=== PATIENT | female | born 1940 | race Caucasian/White ===

== ENCOUNTER 2019-06-27 05:25 | Day surgery (SDC) | payer MEDICARE, OTHER ==
[~2019-06-27] VITALS: Ht 157.5 cm; Wt 58.1 kg
[~2019-06-27 05:25] MED LIST: ATIVAN0.5 MG PO; BACTRIM DS TABL1 TAB PO; BAYER CHEWABLE81 MG PO; CALTRATE-600600 MG PO; HYDROCODONE-A1 UDTA2 PO; LEVOTHROID125 MCG PO; MULTIPLE VITAMI1 TA1 PO; NAMENDA5 MG PO; NORCO 10/325 TA1 TA1 PO; NORVASC10 MG PO; PERCOCET 10/3251 TA1 PO; PRAVACHOL10 MG PO; PRILOSEC20 MG PO; PROZAC20 MG PO; SYNTHROID100 MCG PO; ZANAFLEX4 MG PO; ZESTRIL40 MG PO
[2019-06-27 06:08] LABS: HEMATOCRIT 32.9 % (36.0-48.0); HEMOGLOBIN 10.3 g/dL (12-16); MCH 25.5 pg (26.0-34.0); MCHC 31.3 g/dL (31.0-37.0); MCV 81.4 fL (80.0-100.0); MEAN PLATELET VOLUME 8.1 fL (7.4-10.4); RBC 4.04 10x6/uL (4.00-5.40)
[2019-06-27] MEDS ORDERED: LEVOTHYROXINE100 MCG PO (06:40)
[2019-06-27] MEDS ORDERED: CYMBALTA60 MG PO (06:42)
[2019-06-27] MEDS ORDERED: NAMENDA5 MG PO (06:43)
[2019-06-27] MEDS ORDERED: PROTONIX40 MG PO (06:43)
[2019-06-27 06:53] VITALS: Ht 157.5 cm; Wt 58.1 kg
--- NOTE | 2019-06-27 11:24 | OP ---
PATIENT NAME: SHE MUHAMMAD MEDICAL RECORD: [id number] :44 LOCATION:D.OPS ADMISSION DATE: SURGEON: JESUS HUSAIN MD DATE OF OPERATION: 06/27/2019 SURGEON: Jesus Husain MD ANESTHESIA: TIVA by Azam Culp CRNA. DIAGNOSIS: Urge urinary incontinence. PROCEDURES: Cystoscopy and intravesical Botox injection, 100 units. FINDINGS: On cystoscopy, single ureteral orifices, no bladder tumors. BLOOD LOSS: None. CLINICAL HISTORY: This is a 79-year-old female with urge urinary incontinence. She tried Myrbetriq, which did not help. Today, she is coming for intravesical Botox injection. SHE IS ALLERGIC TO DEMEROL. She was given Ancef oracle financial application developer to the OR. DESCRIPTION OF PROCEDURE: The patient was given IV sedation. She was then placed into the lithotomy position and prepped and draped. A 21-Uzbek cystoscope with 30-degree lens was used for visualization. At 10 different locations, excluding the ureteral orifices of the trigone region, we injected 1 mL of Botox solution. Each mL of Botox solution had 10 units dissolved in it. Thus, a total of 100 units was given overall. Once all the injections were done, the procedure was terminated. The bladder was emptied through the cystoscope sheath. Then, the scope was removed. I will see the patient in followup in 2 weeks' time to check on the effect of the Botox. TRANSINT:[id number] Voice Confirmation ID: [id number] DOCUMENT ID: [id number] JESUS HUSAIN MD at 1124 CC: [id number] DICTATION DATE: 06/27/19 0851 ELECTRICIANS TOP HELPER: 06/27/19 1027 REG [facility] [address] [place] [address]
--- NOTE | 2019-06-27 12:52 | NUR ---
0945 DRESSED. AWAKE & ALERT. GIVEN DISCHARGE INSTRUCTIONS INCLUDING MED REC, RTC APPT., [facility] D/C INSTRUCTIONS, & CYSTOSCOPY & BOTOX D/C INSTRUCTIONS. PT VOICED UNDERSTANDING. HOME WITH DAUGHTER, ANDREI JETT. TO PRIVATE CAR PER WHEELCHAIR BY STAFF. Renee HEWITT R.N.
== END 2019-06-27 09:45 | disposition home or self-care (01) ==
LOC: D.OPS 05:25
PROVIDERS: Anesthesiology; ATTEND Urology
DX: N39.41 Urge incontinence (principal)

== ENCOUNTER 2019-07-04 05:56 | Inpatient (IN) | payer MEDICARE, OTHER ==
[~2019-07-04] VITALS: Ht 157.5 cm; Wt 66.7 kg
--- NOTE | ~2019-07-04 | EC ---
PATIENT:SHE MUHAMMAD DATE OF SERVICE: 07/05/19 SEX: F MEDICAL RECORD: [id number] DATE OF : 44 LOCATION:D.MS [facility] AGE OF PATIENT: 79 ADMISSION DATE: 07/05/19 REFERRING PHYSICIAN: INTERPRETING PHYSICIAN: JERROD ABRAMS MD ECHOCARDIOGRAM REPORT ECHO CHARGES 4 ECHO COMPLETE Date: 07/10/19 CLINICAL DIAGNOSIS: R/O ENDOCARDITIS ECHOCARDIOGRAPHIC MEASUREMENTS (adult normal given) AC root (d.<3.7cm) 2.9 cm LV Septum d (<1.2 cm> 1.2 cm Valve Excursion 1.8 cm LV Septum (systole) 1.3 cm Left Atria (s.<4.0cm> 4.0 cm LVPW d(<1.2cm) 1.0 cm RV (d.<2.3cm) 3.5 cm LVPW (sytole) 1.1 cm LV diastole(<5.6CM) 4.3 cm MV E-F(>70mm/sec) cm LV systole 3.6 cm LVOT Diameter 1.9 cm MV exc.(>10mm) cm Est.ejection fraction (50-75%) % DOPPLER: LVIT cm/sec A 89 cm/sec E 129 cm/sec LA cm/sec RVSP 41.0 mmHg LVOT 116 cm/sec AOP1/2T m/s Asc. Ao 151 cm/sec RVOT 77 cm/sec RA cm/sec PA 90 cm/sec AV Gradient Peak 9.1 mmHg AV Mean 4.0 mmHg AV Area 2.3 cm MV Gradient Peak 8.3 mmHg MV Mean 2.3 mmHg MV Area cm COMMENTS: Heating And Ventilating Worker: Tristen ORELLANA Resolution Rep: 1 Dr. Abrams TAPE# PACS Pericardial Effusion N DATE OF SERVICE: 07/10/2019 FINDINGS: 1. Left ventricular chamber size is within normal limits. Left ventricular systolic function is normal. Overall ejection fraction estimated at 55%. 2. Left atrium is within normal limits. Right atrium and right ventricular chamber sizes are mildly dilated. 3. Valvular structures have normal structure and motion. 4. Doppler interrogation reveals mild mitral regurgitation, dapo-yx-fvhbnovl tricuspid regurgitation, no other valvular insufficiency or stenosis. Pulmonary ECHOCARDIOGRAM REPORT [id number] SHE MUHAMMAD systolic pressure estimated 41 mmHg. 5. No evidence of pericardial effusion or left ventricular thrombus. TRANSINT:[id number] Voice Confirmation ID: [id number] DOCUMENT ID: [id number] JERROD ABRAMS MD CC: [id number] DICTATION DATE: 07/10/191730 BRANCH ASSOCIATE TELLER: 07/10/19 1826 ADM IN [facility] [address] [place] [address]
[~2019-07-04 05:56] MED LIST changes: +CYMBALTA60 MG PO; +LEVOTHYROXINE100 MCG PO; +PROTONIX40 MG PO
[2019-07-04] MEDS ORDERED: CYMBALTA30 MG PO (06:04)
[2019-07-04 07:01] LABS: BASOPHILS 0.1 % (0-2); EOSINOPHILS 0.1 % (0-7); HEMATOCRIT 29.4 % (36.0-48.0); HEMOGLOBIN 9.1 g/dL (12-16); IMMATURE GRANULOCYTES 0.3 % (0-5); MCH 24.6 pg (26.0-34.0); MCV 79.5 fL (80.0-100.0); MEAN PLATELET VOLUME 8.1 fL (7.4-10.4); MONOCYTES 8.5 % (2-11); PLATELET COUNT 533 10x3/uL (130-400); RDW 15.8 % (11.5-14.5)
--- NOTE | 2019-07-04 07:03 | NUR ---
ASSUMED CARE OF PT. RESTING IN BED, AWAKE, A/OX3. CONT TO C/O GENERALIZED PAIN. RESP EVEN/UNLABORED. NAD NOTED. FAMILY AT BS
[2019-07-04 07:07] VITALS: BP 104/55
[2019-07-04 07:07] LABS: ANION GAP 11.3 mmol/L (8-16); CALCIUM 9.1 mg/dL (8.5-10.1); CARBON DIOXIDE 26.4 mmol/L (21.0-32.0); CREATININE - SERUM 1.3 mg/dL (0.6-1.3); POTASSIUM - SERUM 3.7 mmol/L (3.5-5.1)
[2019-07-04 07:14] LABS: ALBUMIN 2.4 g/dL (3.4-5.0); BILIRUBIN - TOTAL 0.47 mg/dL (0.2-1.3); PROTEIN - SERUM 7.1 g/dL (6.4-8.2)
[2019-07-04 07:46] LABS: APPEARANCE HAZY (CLEAR); BACTERIA MODERATE /hpf (NEGATIVE); BILIRUBIN NEGATIVE (NEGATIVE); CALCIUM OXALATE CRYSTALS RARE /hpf (NONE SEEN); COLOR YELLOW (YELLOW); EPITHELIAL CELLS 0-5 /hpf (0-5); GLUCOSE NEGATIVE (NEGATIVE); KETONE NEGATIVE (NEGATIVE); MUCUS <1+ /lpf (NONE SEEN); NITRITE NEGATIVE (NEGATIVE); PROTEIN NEGATIVE (NEGATIVE); RED CELLS - URINE RARE /hpf (0-5); SPECIFIC GRAVITY 1.015 (1.005-1.020); UROBILINOGEN NORMAL (NORMAL); WHITE CELLS - URINE 0-5 /hpf (NEGATIVE)
[2019-07-04 08:09] LABS: CKMB 0.8 U/L (0.0-3.6); CREATINE KINASE 84 UL (21-215)
[2019-07-04 08:11] LABS: TROPONIN-I < 0.017 ng/mL (0.000-0.060)
--- NOTE | 2019-07-04 08:45 | NUR ---
GUAIC STOOL= NEGATIVE. DR VILCHIS NOTIFIED
[2019-07-04 08:57] VITALS: BP 129/60
[2019-07-04 11:40] VITALS: BP 141/55
--- NOTE | 2019-07-04 11:51 | NUR ---
REPORT CALLED TO ABRAN EVANS
--- NOTE | 2019-07-04 11:51 | NUR ---
REPORT RECEIVED FROM ER.
--- NOTE | 2019-07-04 11:55 | NUR ---
TRANSPORTED TO ROOM #2212, CONDITION STABLE
[2019-07-04 12:20] VITALS: BP 132/70; BMI 26.9
--- NOTE | 2019-07-04 12:31 | NUR ---
FALL PRECAUTIONS IN PLACE. CALL RAMOS AND PERSONAL ITEMS IN REACH.
--- NOTE | 2019-07-04 12:31 | NUR ---
PATIENT ADMITTED TO ROOM 2212. ADMISSION COMPLETE. DAUGHTERS AT BEDSIDE.
--- NOTE | 2019-07-04 13:23 | NUR ---
RESTING IN BED. DENIES NEEDS. WILL CONTINUE TO MONITOR.
--- NOTE | 2019-07-04 14:12 | MORECARE ---
CASE MANAGEMENT DISCHARGE SUMMARY PATIENT: SHE MUHAMMAD UNIT: [id number] ADM DATE: 07/04/19 AGE: 79 : 42 SEX: F ROOM/BED: D.2212 AUTHOR: LISA ZELAYA PHYSICIAN: REFERRING PHYSICIAN: SKYLA ESPINOSA MD DATE OF SERVICE: 07/04/19 Discharge Plan Patient Name: SHE MUHAMMAD Facility: [facility]:[place] : 1940 Planned Disposition: Anticipated Discharge Date: Discharge Date: Expected LOS: Initial Reviewer: [email or web address] Initial Review Date: 07/04/2019 Generated: 07/04/19 3:11 pm Comments DCP- Discharge Planning Updated by [email or web address]: Bailey Dubon on 07/04/19 9:[address] CM met with patient to discuss dc plans/needs. Patient is in agreement to proceed with assessment with her daughter, Estephania Peña present. Patient is alert/oriented, very [place]. Stairs/steps: 4 w/o rails entry. PCP: Dr. Espinosa. Pharmacy: [email or web address]. HHS: Does not remember name. DME: Walker, Cane, Shower chair, Raised toilet. Emergency contact: Estephania Waltere (dtr) [phone]. Partial ADL's: Bathing, dressing, meal preparation, transportation. Denies additional services at this time and feels safe returning to previous environment. Advised patient/daughter about Rehab, HHS. Patient's daughter is in agreement to REHAB or HHS with physical therapy. 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 Transportation at time of discharge: Estephania Peña (dtr) [phone]. CM will assist as needed PRN. Patient Name: SHE MUHAMMAD Page [id number] at 1412 All edits/amendments must be made on the electronic document DICTATION DATE: 07/04/19 1411 EQUIPMENT CLEANER: ISAURA 07/04/19 1411 RPT#: [id number] DC DATE: STATUS: ADM IN [facility] [address] [place] [address] END OF REPORT
--- NOTE | 2019-07-04 14:32 | MORECARE ---
CASE MANAGEMENT DISCHARGE SUMMARY PATIENT: SHE MUHAMMAD UNIT: [id number] ADM DATE: 07/04/19 AGE: 79 : 42 SEX: F ROOM/BED: D.2212 AUTHOR: LISA ZELAYA PHYSICIAN: REFERRING PHYSICIAN: SKYLA ESPINOSA MD DATE OF SERVICE: 07/04/19 Discharge Plan Patient Name: SHE MUHAMMAD Facility: [facility]:[employer] : 1940 Planned Disposition: Anticipated Discharge Date: Discharge Date: Expected LOS: Initial Reviewer: [email or web address] Initial Review Date: 07/04/2019 Generated: 07/04/19 3:31 pm DCP- Discharge Planning Updated by [email or web address]: Bailey Dubon on 07/04/19 9:[address] CM met with patient to discuss dc plans/needs. Patient is in agreement to proceed with assessment with her daughter, Estephania Peña present. Patient is alert/oriented, very [place]. Stairs/steps: 4 w/o rails entry. PCP: Dr. Espinosa. Pharmacy: [facility]. HHS: Does not remember name. DME: Walker, Cane, Shower chair, Raised toilet. Emergency contact: Estephania Kruegergue (dtr) [phone]. Partial ADL's: Bathing, dressing, meal preparation, transportation. Denies additional services at this time and feels safe returning to previous environment. Advised patient/daughter about Rehab, HHS. Patient's daughter is in agreement to REHAB or HHS with physical therapy. Denies use of community resources SUPERVISOR PRE WAVE. Transportation at time of discharge: Estephania Peña (dtr) [phone]. CM will assist as needed PRN. DCPIA - Discharge Planning Initial Assessment Updated by [email or web address]: Bailey Dubon on 07/04/19 2:23 pm * Is the patient Alert and Oriented? Yes * How many steps to enter\exit or inside your home? * PCP Dr. Espinosa * Pharmacy [facility] * Preadmission Environment Home with Family * ADLs Partial Dependent * Partial ADLs (Assistance needed) Ambulation Bathing Dressing Toileting Transfers * Equipment Cane Elevated [place] Seat Rolling Walker Shower Chair Walker * List name and contact numbers for known caregivers / representatives who currently or will assist patient after discharge: Estephania Peña (dtr) [phone] * Verbal permission to speak to the caregivers and representatives has been obtained from the patient. Yes * Community resources currently utilized None * Additional services required to return to the preadmission environment? Yes * Can the patient safely return to the preadmission environment? No * Has this patient been hospitalized within the prior 30 days at any hospital? No Last DP export: 07/04/19 1:12 Patient Name: SHE MUHAMMAD Page [id number] at 1432 All edits/amendments must be made on the electronic document DICTATION DATE: 07/04/191430 TANNING DRUM OPERATOR: ISAURA 07/04/191430 RPT#: [id number] DC DATE: STATUS: ADM IN [facility] [address] [place] [address] END OF REPORT
[2019-07-04 17:11] VITALS: BP 108/45
--- NOTE | 2019-07-04 18:32 | NUR ---
RESTING IN BED. DENIES NEEDS. BED LOW. FALL PRECAUTIONS IN PLACE. IV TO LFA PATENT WITHOUT REDNESS. CALL RAMOS AND PERSONAL ITEMS IN REACH.
[2019-07-04 18:45] LABS: % SATURATION 4 % (15-55); IRON 9 ug/dl (35-150); TOTAL IRON BIND CAPACITY 202 ug/dl (260-445); UNSAT IRON BIND CAPACITY 193 ug/dl (150-375)
[2019-07-04 20:00] VITALS: BP 126/52
--- NOTE | 2019-07-04 20:00 | NUR ---
ASSESSMENT PER FLOWSHEET. IV PATENT LEFT FOREA RM OF NS AT 125CC'S/HR. SITE CLEAR. CHANDU MAT ON YELLOW SAFETY MEASURES IN USE.SR UP X2 CALL LIGHT WITHIN REACH.
--- NOTE | 2019-07-04 21:15 | NUR ---
MEDS GIVEN PER MAR.UP TO BSC WITH HELP VOIDS WELL ASSISTED BACK TO BED
--- NOTE | 2019-07-04 23:24 | NUR ---
REQUESTING PAIN MED FOR ARTHRITIC PAIN. NORCO 7.5 MG TAB ONE PO GIVEN FOR PAIN CONTRO.
--- NOTE | 2019-07-05 01:15 | NUR ---
EYES CLOSED RESPIRATIONS WITH EASE AND UNLABORED.
--- NOTE | 2019-07-05 03:44 | NUR ---
RESTING QUIETLY NO CHANGES IN ASSESSMENT.
[2019-07-05 04:00] VITALS: BP 153/53
[2019-07-05 05:11] LABS: ANION GAP 13.8 mmol/L (8-16); BILIRUBIN - TOTAL 0.22 mg/dL (0.2-1.3); POTASSIUM - SERUM 3.8 mmol/L (3.5-5.1); PROTEIN - SERUM 5.8 g/dL (6.4-8.2)
[2019-07-05 05:12] LABS: ALBUMIN 1.7 g/dL (3.4-5.0)
[2019-07-05 05:13] LABS: BASOPHILS 0 % (0-2); EOSINOPHILS 0.1 % (0-7); HEMATOCRIT 24.4 % (36.0-48.0); HEMOGLOBIN 7.8 g/dL (12-16); IMMATURE GRANULOCYTES 0.3 % (0-5); MCH 25.7 pg (26.0-34.0); MCV 80.5 fL (80.0-100.0); MEAN PLATELET VOLUME 8.3 fL (7.4-10.4); MONOCYTES 8.5 % (2-11); NEUTROPHILS 85.1 % (40-80); PLATELET COUNT 514 10x3/uL (130-400); RBC 3.03 10x6/uL (4.00-5.40); RDW 16.2 % (11.5-14.5); WBC 15.8 10x3/uL (4.8-10.8)
--- NOTE | 2019-07-05 06:14 | NUR ---
MEDS GIVEN PER MAR. NO CHANGES IN ASSESSMENT.
--- NOTE | 2019-07-05 07:29 | NUR ---
PT RESTING IN BED. NO SIGNS OF DISTRESS. IV TO LEFT FORARM PATENT NO REDNESS OR TENDERNESS. DENIES ANY FURTHER NEED AT THIS TIME. CALL LIGHT IN REACH. BED LOW POSITION. NO FAMILY AT BEDSIDE AT THIS TIME.
[2019-07-05 09:22] VITALS: BP 111/57
[2019-07-05 09:34] LABS: ERYTHROCYTE SEDIMENTATION RATE 105 mm/hr (0-30)
[2019-07-05 12:56] LABS: PROTEIN - BODY FLUID 4.5 G/DL
[2019-07-05 13:13] VITALS: BP 100/42
[2019-07-05 13:20] LABS: NEUT - BF 67 %
[2019-07-05 16:45] VITALS: BP 119/49
[2019-07-05 18:12] LABS: % SATURATION 5 % (15-55); IRON 7 ug/dl (35-150); TOTAL IRON BIND CAPACITY 134 ug/dl (260-445); UNSAT IRON BIND CAPACITY 127 ug/dl (150-375)
--- NOTE | 2019-07-05 19:40 | NUR ---
I have reviewed this patient and I concur with the Shift Assessment completed by the Licensed Practical Nurse today this shift.
--- NOTE | 2019-07-05 19:45 | NUR ---
LYING IN BED. ALERT AND ORIENTED TO SELF ONLY. CONFUSED. [place]. RESP EVEN AND NONLABORED. BANADAID NOTED TO OUTER LT KNEE. DENIES PAIN. NS @ 125 ML/HR INFUSING IN LT FOREARM. B/P LOW. WAITING ON PRBC TO BE READY TO INFUSE. CL IN REACH. CHANDU ALARM ON FOR PT SAFETY.
[2019-07-05 19:46] VITALS: BP 84/49
--- NOTE | 2019-07-05 20:30 | NUR ---
RECEIVED CALL FROM LAB THAT PRBC ARE READY BUT PT HAS ANTIBODY THAT REQUIRES TRANSFUSION VIA BLOOD WARMER. SPOKE WITH ORALIA GORDON RN AND DONNY FROM ICU WILL BRING WARMER TO UNIT.
--- NOTE | 2019-07-05 20:40 | NUR ---
1ST UNIT OF PRBCS STARTED. WILL MONITOR FOR S/S OF ADVERSE REACTION.
--- NOTE | 2019-07-05 21:15 | NUR ---
NO S/S OF ADVERSE REACTION TO PRBCS. WILL CONT TO MONITOR CLOSELY.
--- NOTE | 2019-07-05 22:40 | NUR ---
1ST UNIT OF PRBCS FINISHED TRANSFUSING. NO REACTION NOTED.
--- NOTE | 2019-07-05 22:55 | NUR ---
2ND UNIT OF PRBCS STARTED AT THIS TIME VIA WARMER. WILL MONITOR FOR S/S OF ADVERSE REACTION.
--- NOTE | 2019-07-05 23:10 | NUR ---
NO ADVERSE REACTION NOTED TO PRBCS TRANSFUSION. WILL CONT TO MONITOR CLOSELY. CL IN REACH.
[2019-07-06] VITALS: BP 92/43
--- NOTE | 2019-07-06 02:00 | NUR ---
2ND UNIT OF PRBC FINISHED TRANSFUSING. NO ADVERSE REACTION. V/S STABLE.
[2019-07-06 04:00] VITALS: BP 106/51
--- NOTE | 2019-07-06 06:00 | NUR ---
BED BATH GIVEN AT THIS TIME PER CROP PICKER'S. NO DISTRESS. CHANDU ALARM ON. CL IN REACH.
[2019-07-06 06:28] LABS: ALBUMIN 1.6 g/dL (3.4-5.0); ANION GAP 13.6 mmol/L (8-16); BILIRUBIN - TOTAL 0.44 mg/dL (0.2-1.3); CALCIUM 8.1 mg/dL (8.5-10.1); CARBON DIOXIDE 22.2 mmol/L (21.0-32.0); CREATININE - SERUM 0.9 mg/dL (0.6-1.3); POTASSIUM - SERUM 3.8 mmol/L (3.5-5.1); PROTEIN - SERUM 5.7 g/dL (6.4-8.2)
[2019-07-06 06:38] LABS: BASOPHILS 0.2 % (0-2); EOSINOPHILS 1.2 % (0-7); IMMATURE GRANULOCYTES 0.3 % (0-5); LYMPHOCYTES 16.8 % (15-50); MCH 26.4 pg (26.0-34.0); MEAN PLATELET VOLUME 9.1 fL (7.4-10.4); MONOCYTES 15.5 % (2-11); PLATELET COUNT 424 10x3/uL (130-400); RDW 16.4 % (11.5-14.5)
[2019-07-06 06:39] LABS: HEMATOCRIT 30.6 % (36.0-48.0); HEMOGLOBIN 9.8 g/dL (12-16); MCV 82.5 fL (80.0-100.0); RBC 3.71 10x6/uL (4.00-5.40); WBC 9.3 10x3/uL (4.8-10.8)
--- NOTE | 2019-07-06 07:25 | NUR ---
PT RESTING IN BED. NO SIGNS OF DISTRESS. IV TO LEFT FORARM PATENT NO REDNESS OR TENDERNESS. ALL FALL PRECAUTIONS IN PLACE. COMPLAINS OF PAIN. DENIES ANY FURTHER NEED AT THIS TIME. CALL LIGHT IN REACH. BED LOW POSITION. NO FAMILY AT BEDSIDE AT THIS TIME.
[2019-07-06 08:42] VITALS: BP 127/57
[2019-07-06 12:29] VITALS: BP 116/55
--- NOTE | 2019-07-06 12:45 | NUR ---
OT NOTE: UPON ENTERING ROOM, PT WAS CRYING. STATED THAT SHE HATED BEING LIKE THIS AND DTR TOLD HER THAT IF SHE DIDNT START WALKING SHE WOULD HAVE TO GO TO INTERMEDIATE. EXPLAINED TO PT THAT SHE IS DOING WELL AND THAT SHE HAS TO CONTINUE WORKING ON ACTIVITIES TO STRENGTHEN. SHE ABLE TO PERFORM BED MOB WITH MIN ASSIST; SIT TO STAND WITH MIN ASSIST. ABLE TO WASH FACE AND HANDS WITH SET UP. PHYSICAL THERAPY HAS PREVIOUSLY AMBULATED WITH HER SO SHE WAS FATIGUED. YA SWANSON, OTR/L
[2019-07-06 17:35] VITALS: BP 124/48
--- NOTE | 2019-07-06 17:35 | NUR ---
FAMILY AT BEDSIDE.WANTING TO SPEK WITH MD AREVALO.. PT CARE PLANS.
--- NOTE | 2019-07-06 20:03 | NUR ---
OT NOTE: PT COMPLETED BED MOB TASKS WITH CGA. PT IS VERY EMOTIONAL AND LABILE. PT COMPLETED ADL MOB WITH RW REQUIRED CGA. PT STATED THAT DAUGHTER TOLD HER "IF SHE CANNOT WALK SHE WILL GO TO A [facility]." THANK YOU, DEJAH STILL
[2019-07-06 20:29] VITALS: BP 128/55
--- NOTE | 2019-07-06 21:55 | NUR ---
A/O WITH NO SIGNS OF ACUTE DISTRESS. IV TO THE LT FOREARM WITH NO REDNESS OR SWELLING. CHANDU ALARM ON. PT IS CRYING AND RESTLESS BECAUSE SHE CANNOT GET COMFORTABLE. REPOSITIONED PT AND COACHED THROUGH DEEP BREATHING. WILL ADMINISTER MEDS DEPENDING ON VITAL SIGNS. WILL CONTINUE TO MONITOR CLOSELY.
--- NOTE | 2019-07-06 22:46 | NUR ---
PT IS STILL RESTLESS AND REPORTS DISCOMFORT STATING THAT SHE HAS PAIN EVERYWHERE. BP 132/64. GAVE SCHEDULED ATIVAN LATE. WILL CONTINUE TO MONITOR.
[2019-07-07 01:22] VITALS: BP 162/92
[2019-07-07 06:20] VITALS: BP 118/601
[2019-07-07 07:26] LABS: BASOPHILS 0.2 % (0-2); EOSINOPHILS 0.7 % (0-7); HEMATOCRIT 31.9 % (36.0-48.0); HEMOGLOBIN 10.3 g/dL (12-16); IMMATURE GRANULOCYTES 1.3 % (0-5); LYMPHOCYTES 15.2 % (15-50); MCH 26.6 pg (26.0-34.0); MCHC 32.3 g/dL (31.0-37.0); MCV 82.4 fL (80.0-100.0); MEAN PLATELET VOLUME 8.6 fL (7.4-10.4); MONOCYTES 13.4 % (2-11); NEUTROPHILS 69.2 % (40-80); RBC 3.87 10x6/uL (4.00-5.40); RDW 17.2 % (11.5-14.5); WBC 10.4 10x3/uL (4.8-10.8)
[2019-07-07 07:27] LABS: PLATELET COUNT 516 10x3/uL (130-400)
[2019-07-07 07:31] LABS: ALBUMIN 1.6 g/dL (3.4-5.0); ANION GAP 15.5 mmol/L (8-16); BILIRUBIN - TOTAL 0.33 mg/dL (0.2-1.3); CARBON DIOXIDE 20.9 mmol/L (21.0-32.0); CREATININE - SERUM 1.1 mg/dL (0.6-1.3); POTASSIUM - SERUM 3.4 mmol/L (3.5-5.1)
[2019-07-07 07:49] LABS: C-REACTIVE PROTEIN 21.3 mg/dL (0.0-0.9)
[2019-07-07 08:33] LABS: ERYTHROCYTE SEDIMENTATION RATE 56 mm/hr (0-30)
--- NOTE | 2019-07-07 08:45 | NUR ---
PATIENT IN BED WITH IV INTACT. STATED SHE IS HAVING SOME PAIN TO BLE. VS STABLE AT THIS TIME. FAMILY AT BEDSIDE. WILL CONTINUE TO MONITOR AND WILL CHECK ON MEDS. CALL TIANNA MARSH.
[2019-07-07 13:57] VITALS: BP 124/65
[2019-07-07 15:10] VITALS: BP 135/55
--- NOTE | 2019-07-07 15:10 | NUR ---
PATIENT BACK TO ROOM FROM OR AT THIS TIME. IV INTACT. NO COMPLAINTS. VS STABLE. PATIENT RESTING QUIETLY. FAMILY AT BEDSIDE. CALL LIGHT WITHN REACH.
[2019-07-07 16:01] VITALS: BP 135/55
--- NOTE | 2019-07-07 17:00 | NUR ---
PATIENT EYES CLOSED RESTING QUIETLY AT THIS TIME. IV INTACT. VS STABLE. WILL CONTINUE TO MONITOR. CALL LIGHT WITHIN REACH.
--- NOTE | 2019-07-07 19:00 | NUR ---
REPORT GIVEN TO HARLAN OSULLIVAN. PATIENT IN BED WITH VS STABLE. NO COMPLAINTS. CALL LIGHT WITHIN REACH.
[2019-07-07 20:00] VITALS: BP 124/68
[2019-07-08 04:00] VITALS: BP 149/71
[2019-07-08 06:51] LABS: ALBUMIN 1.4 g/dL (3.4-5.0); BILIRUBIN - TOTAL 0.28 mg/dL (0.2-1.3); CALCIUM 8.2 mg/dL (8.5-10.1); CREATININE - SERUM 0.9 mg/dL (0.6-1.3); PROTEIN - SERUM 5.2 g/dL (6.4-8.2)
[2019-07-08 06:55] LABS: ANION GAP 15.6 mmol/L (8-16); POTASSIUM - SERUM 4.6 mmol/L (3.5-5.1)
[2019-07-08 06:58] LABS: HEMATOCRIT 31.1 % (36.0-48.0); MCH 26.1 pg (26.0-34.0); MCHC 32.2 g/dL (31.0-37.0); MCV 81.2 fL (80.0-100.0); MEAN PLATELET VOLUME 8.2 fL (7.4-10.4); PLATELET COUNT 440 10x3/uL (130-400); RBC 3.83 10x6/uL (4.00-5.40); RDW 17.5 % (11.5-14.5); WBC 10.2 10x3/uL (4.8-10.8)
[2019-07-08 07:43] LABS: LYMPHOCYTES 27 % (15-50); NEUTROPHILS 73 % (40-80); PLATELET ESTIMATE INCREASED
[2019-07-08 08:01] VITALS: BP 144/65
--- NOTE | 2019-07-08 10:46 | NUR ---
PT ALERT X 4. BREATH SOUNDS CLEAR BILAT. TELEMETRY IN PLACE. IV TO LEFT FOREARM, PATENT, DRESSING CDI. JULIA WRAPS TO BILAT KNEES. PT REPORTING PAIN OF 6/10, MEDICATED PER ORDERS, WILL MONITOR. FAMILY AT BEDSIDE. BED LOW, CALL LIGHT IN REACH. NO OTHER NEEDS AT THIS TIME.
[2019-07-08 11:58] VITALS: BP 149/64
[2019-07-08 19:30] VITALS: BP 153/65
[2019-07-09 00:30] VITALS: BP 148/62
[2019-07-09 04:30] VITALS: BP 151/70
--- NOTE | 2019-07-09 05:30 | NUR ---
ASSISTED PT UP TO BEDSIDE COMMODE. PT DRIBBLED SOFT STOOL ON BED WHILE TRYING TO GET UP. COMPLETE BED AND GOWN CHANGE. PT C/O PAIN 04/18. GAVE MORPHINE 1 MG IV PUSH AFTER GETTING BACK TO BED. PT SAID LEFT KNEE "LEAKING" GETTING DRESSING WET. UNWRAPPED JULIA TO ASSESS. NO DRAINAGE, DRESSING C/D/I. REWRAPPED. NO OTHER NEEDS. WILL CONTINUE TO MONITOR.
[2019-07-09 05:42] LABS: BASOPHILS 0.2 % (0-2); EOSINOPHILS 1.6 % (0-7); HEMOGLOBIN 9.8 g/dL (12-16); IMMATURE GRANULOCYTES 7.9 % (0-5); LYMPHOCYTES 24.3 % (15-50); MCH 26.7 pg (26.0-34.0); MCHC 32.7 g/dL (31.0-37.0); MCV 81.7 fL (80.0-100.0); MEAN PLATELET VOLUME 8.2 fL (7.4-10.4); MONOCYTES 11.8 % (2-11); NEUTROPHILS 54.2 % (40-80); PLATELET COUNT 467 10x3/uL (130-400); RBC 3.67 10x6/uL (4.00-5.40); WBC 11.3 10x3/uL (4.8-10.8)
[2019-07-09 06:35] LABS: ALBUMIN 1.3 g/dL (3.4-5.0); ANION GAP 13.5 mmol/L (8-16); BILIRUBIN - TOTAL 0.18 mg/dL (0.2-1.3); CALCIUM 7.9 mg/dL (8.5-10.1); CARBON DIOXIDE 21.2 mmol/L (21.0-32.0); CREATININE - SERUM 1.1 mg/dL (0.6-1.3); PROTEIN - SERUM 5.3 g/dL (6.4-8.2)
[2019-07-09 06:36] LABS: POTASSIUM - SERUM 3.7 mmol/L (3.5-5.1)
--- NOTE | 2019-07-09 07:12 | NUR ---
PT IS RESTING IN BED WITH EYES CLOSED. RESPIRATONS ARE EVEN AND UNLABORED. PT IS EASILY AROUSED WITH VERBAL STIMULATION. PT IS AAO X 4 UPON AROUSAL. PT IS [place]IL[place] BUT HAS HEARING AIDS. BILATERAL KNEE DRESSINGS ARE IN PLACE AND ARE CDI. PT DENIES PRESENCE OF PAIN/N/V AT THIS TIME. PT DENIES PRESENCE OF NUMBNESS/TINGLING IN BILATERAL LOWER EXTREMITIES. BILATERAL PEDAL PULSES ARE PALP. ALL FALL PRECAUTIONS ARE IN PLACE. BED IS IN THE LOWEST POSITION. CALL LIGHT AND BEDSIDE TABLE ARE WITHIN REACH. SIDE RAILS X 2. PT DENIES FURTHER NEEDS. INCENTIVE SPIROMETER AT BEDSIDE. PT ENCOURAGED TO USE I.S. PT RETURNED APPROPRIATE DEMONISOTRATION. WILL CONT TO MONITOR.
[2019-07-09 08:40] VITALS: BP 152/54
--- NOTE | 2019-07-09 09:45 | OP ---
PATIENT NAME: SHE MUHAMMAD MEDICAL RECORD: [id number] :44 LOCATION:D.MS Bro2212 ADMISSION DATE:07/05/19 SURGEON: JENNIFER NO MD DATE OF OPERATION: 07/07/2019 PREOPERATIVE DIAGNOSIS: Bilateral knee septic arthritis. POSTOPERATIVE DIAGNOSIS: Bilateral knee septic arthritis. PROCEDURE: Arthroscopic irrigation and debridement of bilateral knees. SURGEON: Jennifer No MD POWDER SHOVELER: Julio Cesar Rivear. INTRAOPERATIVE COMPLICATIONS: None. SUMMARY OF PATHOLOGIC FINDINGS: Both knees had substantial purulence. Cultures were taken separately and sent to the lab for Gram stain, aerobic and anaerobic evaluation. OPERATIVE SUMMARY IN DETAIL: After obtaining the appropriate the preoperative orthopedic surgery consent as well as anesthetic consultation, evaluation and clearance, the patient was brought to the operating room and placed on. The operating table in a supine position. After general laryngeal mask airway was administered and the appropriate time outs were agreed upon, bilateral lower extremity was prepped and draped simultaneously. Attention was first turned to the right leg without exsanguination. The leg was held up and the tourniquet was inflated. Inferolateral portal was established followed by superomedial portal and inferomedial portal. Diagnostic arthroscopy was taken of the [place] fluid before any saline was introduced. This was then sent for studies as noted above. Serial and sequential debridement of the entire knee was done to include chondroplasty, synovectomy of the medial or lateral gutter, suprapatellar recess as well as around the meniscus. After the appropriate amount of lavage as well as debridement had been performed, arthroscopy portals were closed on the right. Sterile dressings were applied. Tourniquet was deflated. Attention was then turned to the left knee. Once again, the leg was elevated, not exsanguinated, tourniquet was inflated to 350 mmHg. Again, inferolateral portal was established. Cultures were taken and again the same findings were noted. The [place] fluid was very purulent with a gross phlegmon. This was likewise sent for aerobic and anaerobic cultures as well as Gram stain. At this point, arthroscopic portals were created and all areas were treated with synovectomy and chondroplasty, including the medial and lateral gutter, suprapatellar recess as well as in and about the menisci. After the appropriate amount lavage had been finished, again arthroscopic portals were closed with 4-0 Prolene in interrupted fashion. Sterile dressings were placed here as well. Tourniquet was deflated. The patient was awakened and taken to recovery room in stable condition. All final needle and sponge counts were correct. TRANSINT:[id number] Voice Confirmation ID: [id number] DOCUMENT ID: [id number] OPERATIVE REPORT [id number] SHE MUHAMMAD MD, JENNIFER HAYS at 0945 CC: [id number] DICTATION DATE: 07/07/19 1450 SET RIDER: 07/07/19 1656 ADM IN [facility] [address] [place] [id number]
[2019-07-09 13:49] VITALS: BP 142/54
[2019-07-09 16:54] VITALS: BP 163/69
[2019-07-09 19:30] VITALS: BP 166/67
[2019-07-10 00:30] VITALS: BP 170/64
[2019-07-10 05:00] VITALS: BP 135/78
[2019-07-10 06:10] LABS: BASOPHILS 0.1 % (0-2); EOSINOPHILS 0.4 % (0-7); HEMATOCRIT 31.9 % (36.0-48.0); HEMOGLOBIN 10.1 g/dL (12-16); IMMATURE GRANULOCYTES 8.5 % (0-5); LYMPHOCYTES 12.1 % (15-50); MCH 26.4 pg (26.0-34.0); MCHC 31.7 g/dL (31.0-37.0); MCV 83.3 fL (80.0-100.0); MEAN PLATELET VOLUME 8.5 fL (7.4-10.4); MONOCYTES 3.7 % (2-11); NEUTROPHILS 75.2 % (40-80); PLATELET COUNT 511 10x3/uL (130-400); RBC 3.83 10x6/uL (4.00-5.40); RDW 18.4 % (11.5-14.5); WBC 10.8 10x3/uL (4.8-10.8)
[2019-07-10 06:28] LABS: ALBUMIN 1.4 g/dL (3.4-5.0); ANION GAP 12.1 mmol/L (8-16); BILIRUBIN - TOTAL 0.24 mg/dL (0.2-1.3); CALCIUM 8.2 mg/dL (8.5-10.1); CARBON DIOXIDE 21.7 mmol/L (21.0-32.0); POTASSIUM - SERUM 3.8 mmol/L (3.5-5.1); PROTEIN - SERUM 5.7 g/dL (6.4-8.2)
[2019-07-10 06:29] LABS: CREATININE - SERUM 0.8 mg/dL (0.6-1.3)
[2019-07-10 08:45] VITALS: BP 183/68
[2019-07-10 11:00] LABS: ERYTHROCYTE SEDIMENTATION RATE 84 mm/hr (0-30)
--- NOTE | 2019-07-10 11:46 | NUR ---
Rehab Prescreening Consult recieved and the chart has been reviewed. She is a good ARU candidate and will be accepted when physician feels she is medically stable for discharge to rehab. Will discuss with the CM Brittni Florentino RN. Megan Bates RN Clinical Liaison, Rehab
[2019-07-10 13:23] VITALS: BP 137/74
[2019-07-10 13:51] VITALS: Ht 157.5 cm; Wt 66.7 kg
--- NOTE | 2019-07-10 14:38 | NUR ---
I have reviewed this patient and I concur with the Shift Assessment completed by the Licensed Practical Nurse today this shift.
--- NOTE | 2019-07-10 15:21 | MORECARE ---
CASE MANAGEMENT DISCHARGE SUMMARY PATIENT: SHE MARTINEZ UNIT: [id number] ADM DATE: 07/05/19 AGE: 79 : 42 SEX: F ROOM/BED: D.2212 AUTHOR: LISA ZELAYA PHYSICIAN: REFERRING PHYSICIAN: SKYLA ESPINOSA MD DATE OF SERVICE: 07/10/19 Discharge Plan Patient Name: SHE MARTINEZ Facility: [facility]:[place] : 1940 Planned Disposition: Anticipated Discharge Date: Discharge Date: Expected LOS: Initial Reviewer: [id number] Initial Review Date: 07/04/2019 Generated: 07/10/19 4:20 pm Comments DCP- Discharge Planning Updated by [email or web address]: Vera Florentino on 07/10/19 2:[address] SPOKE WITH PATIENT & DAUGHTER ABOUT DC PLANNING. SHE WOULD LIKE TO GO TO INPATIENT REHAB AT [facility]. AFTER SPEAKING WITH DR CHANDLER AND DR NO. WE WILL STOP ABX AND SEE HOW PATIENT DOES OVER NIGHT. ANTICIPATE DC TOMORROW TO INPATIENT REHAB TOMORROW IF STABLE. IMM SERVED AND EXPLAINED. CAROLYN SIGNED AND PLACED IN CHART DCP- Discharge Planning Updated by [id number]: Bailey Dubon on 07/04/19 9:[address] CM met with patient to discuss dc plans/needs. Patient is in agreement to proceed with assessment with her daughter, Estephania Jett present. Patient is alert/oriented, very [place]. Stairs/steps: 4 w/o rails entry. PCP: Dr. Espinosa. Pharmacy: [facility]. HHS: Does not remember name. DME: Walker, Cane, Shower chair, Raised toilet. Emergency contact: Estephania Jett (dtr) [phone]. Partial ADL's: Bathing, dressing, meal preparation, transportation. Denies additional services at this time and feels safe returning to previous environment. Advised patient/daughter about Rehab, HHS. Patient's daughter is in agreement to REHAB or HHS with physical therapy. Denies use of community resources BUSINESS CENTER MANAGER. Transportation at time of discharge: Estephania Jett (dtr) [phone]. CM will assist as needed PRN. DCPIA - Discharge Planning Initial Assessment Updated by [id number]: Bailey Dubon on 07/04/19 2:23 pm * Is the patient Alert and Oriented? Yes * How many steps to enter\exit or inside your home? * PCP Dr. Espinosa * Pharmacy [facility]Note 3[facility] [place] * Preadmission Environment Home with Family * ADLs Partial Dependent * Partial ADLs (Assistance needed) Ambulation Bathing Dressing Toileting Transfers * Equipment Cane Elevated [place] Seat Rolling Walker Shower Chair Walker * List name and contact numbers for known caregivers / representatives who currently or will assist patient after discharge: Estephania Casey (dtr) [phone] * Verbal permission to speak to the caregivers and representatives has been obtained from the patient. Yes * Community resources currently utilized None * Additional services required to return to the preadmission environment? Yes * Can the patient safely return to the preadmission environment? No * Has this patient been hospitalized within the prior 30 days at any hospital? No Coverage Notice Reviewer: [id number] - Bailey Dubon Notice Issued Date-Time: 07/05/2019 10:28 Notice Type: Medicare Outpatient Observation Notice Notice Delivered To: Patient Relationship to Patient: Self Hand Spring Repairer Name: Seh Martinez Delivery Method: HAND - Hand Delivered Henny Days: Prior Verbal Notification: Recipient Understood Notice: Yes Recipient Signature: Yes Med Rec Note Co-signed by Attending: Coverage Notice Comment: RAMIREZ delivered to and signed by patient. Original given to patient and placed on chart. Reviewer: [id number] Gayathri Florentino Notice Issued Date-Time: 07/10/2019 14:00 Notice Type: Patient Choice Letter Notice Delivered To: Patient Relationship to Patient: Power of Account Processor Hand Spring Repairer Name: ANDREI JETT GiovannaDAUGHT Delivery Method: HAND - Hand Delivered Henny Days: Prior Verbal Notification: Recipient Understood Notice: Yes Recipient Signature: Yes Med Rec Note Co-signed by Attending: Coverage Notice Comment: CAROLYN FOR INPATIENT REHAB Reviewer: [id number] Gayathri Florentino Notice Issued Date-Time: 07/10/2019 14:00 Notice Type: IM Discharge Notice Notice Delivered To: Patient Relationship to Patient: Power of Account Processor Hand Spring Repairer Name: ANDREI JETT Delivery Method: HAND - Hand Delivered Henny Days: Prior Verbal Notification: Recipient Understood Notice: Yes Recipient Signature: Yes Med Rec Note Co-signed by Attending: Coverage Notice Comment: Last DP export: 07/04/19 1:32 Patient Name: SHE MARTINEZ Page 32023 at 1521 All edits/amendments must be made on the electronic document DICTATION DATE: 07/10/191519 BEREAVEMENT COORDINATOR: ISAURA 07/10/191519 RPT#: [id number] DC DATE: STATUS: ADM IN [facility] [address] [place] [address] END OF REPORT
--- NOTE | 2019-07-10 16:16 | NUR ---
OT NOTE: BED MOB WITH MIN ASSIST; SUPINE TO SIT WITH WALKER AND MIN ASSIST FROM BEDSIDE; ABLE TO AMB WITH WALKER, IV, AND MIN ASSIST X APPROX 50 FT..VERY SLOW PACE DURING AMB. TRANSFER TO BS COMMODE WITH MIN ASSIST; HYGIENE WITH MOD ASSIST; SIT TO STAND WITH MOD ASSIST FROM TOILET DUE TO FATIGUE. SIMPLE GROOMING TASKS WITH WASHCLOTH AND SET UP; BACK TO BED WIHT MOD ASSIST FOR SIT TO SUPINE. YA SWANSON, OTR/L
[2019-07-10 16:46] VITALS: BP 172/71
--- NOTE | 2019-07-10 19:25 | NUR ---
PT LYING IN BED SLEEPING WITHOUT DISTRESS. AWAKENS TO VERBAL STIMULI. AOX4. IV LEFT FA INFUSING NS @ 50. INCISIONS TO BILAT KNEE CDI WITH BANDAIDS. DENIES NEEDS AT THIS TIME. CL IN REACH, CHANDU ON. WILL CTM
[2019-07-10 19:30] VITALS: BP 154/61
--- NOTE | 2019-07-10 20:56 | NUR ---
OT NOTE: PT REQUIRED MOD A FOR SIT TO STAND. PT REQUIRED MIN A FOR ADL MOB. PT COMPLETED UE AROM AX. THANK YOU, DEJAH STILL
[2019-07-11 00:30] VITALS: BP 126/75
[2019-07-11 05:00] VITALS: BP 171/72
--- NOTE | 2019-07-11 07:36 | NUR ---
PATIENT RECIVED FROM PREVIOUS NURSE RESTING IN BED WITH NO NEEDS VOICED, PATIENT IS HARD OF HEARING. CL IN REACH.
[2019-07-11 08:31] VITALS: BP 172/74
[2019-07-11 11:42] LABS: HEMATOCRIT 32.6 % (36.0-48.0); HEMOGLOBIN 10.5 g/dL (12-16); MCH 26.3 pg (26.0-34.0); MCHC 32.2 g/dL (31.0-37.0); MCV 81.5 fL (80.0-100.0); MEAN PLATELET VOLUME 8.3 fL (7.4-10.4); PLATELET COUNT 526 10x3/uL (130-400)
[2019-07-11 11:47] LABS: WBC 14.7 10x3/uL (4.8-10.8)
[2019-07-11 12:19] LABS: CALCIUM 8.5 mg/dL (8.5-10.1); CREATININE - SERUM 0.8 mg/dL (0.6-1.3)
[2019-07-11 12:24] LABS: ANION GAP 8.9 mmol/L (8-16); CARBON DIOXIDE 27.2 mmol/L (21.0-32.0); POTASSIUM - SERUM 3.1 mmol/L (3.5-5.1)
[2019-07-11 13:36] VITALS: BP 162/70
[2019-07-11 14:05] LABS: ANISOCYTOSIS OCC; EOSINOPHILS 3 % (0-7); HYPOCHROMASIA OCC; LYMPHOCYTES 20 % (15-50); MONOCYTES 9 % (2-11); NEUTROPHILS 61 % (40-80); PLATELET ESTIMATE INCREASED; ROULEAUX OCC
--- NOTE | 2019-07-11 15:39 | NUR ---
OT NOTE: PT REQUIRED MIN/MOD A FOR SIT TO STAND. PT COMPLETED ADL MOB WITH RW. PT IS EMOTIONALLY LABILE. PT COMPLETED EOB SITTING WITH SBA. PT COMPLETED HAIR GROOMING WITH SET UP. THANK YOU, DEJAH STILL
--- NOTE | 2019-07-11 16:02 | NUR ---
OT NOTE: BED MOB WITH MIN ASSIST AND EXT TIME; SIT TO STAND IWTH MIN ASSIST; AMB TO HALLWAY WITH MIN ASSIST AND ASSIST WITH IV POLE. MAX ASSIST TO JIE SOCKS; MIN ASSIST TO WASH FACE AND HANDS WITH WASHCLOTH. YA SWANSON, OTR/L
[2019-07-11 17:27] VITALS: BP 162/66
--- NOTE | 2019-07-11 19:25 | NUR ---
PT LYING IN BED RESTING WITHOUT DISTRESS, AOX4. IV LEFT AC INFUSING NS @ 50. SCDS ON. CHANDU ON. DENIES NEEDS. CL IN REACH, WILL CTM
[2019-07-11 19:30] VITALS: BP 171/67
[2019-07-12 00:30] VITALS: BP 167/70
--- NOTE | 2019-07-12 01:30 | NUR ---
PT REQUESTED AND GIVEN NORCO FOR PAIN IN LEGS. DENIES OTHER NEEDS. CL IN REACH, WILL CTM
[2019-07-12 05:00] VITALS: BP 170/74
[2019-07-12 05:00] LABS: BASOPHILS 0.2 % (0-2); EOSINOPHILS 5.8 % (0-7); HEMOGLOBIN 10.3 g/dL (12-16); IMMATURE GRANULOCYTES 5.2 % (0-5); LYMPHOCYTES 29.6 % (15-50); MCH 26.3 pg (26.0-34.0); MCHC 32.2 g/dL (31.0-37.0); MCV 81.6 fL (80.0-100.0); MEAN PLATELET VOLUME 8.5 fL (7.4-10.4); MONOCYTES 10.2 % (2-11); PLATELET COUNT 592 10x3/uL (130-400); RBC 3.92 10x6/uL (4.00-5.40); RDW 18.5 % (11.5-14.5)
[2019-07-12 05:15] LABS: WBC 9.9 10x3/uL (4.8-10.8)
[2019-07-12 05:22] LABS: ALBUMIN 1.5 g/dL (3.4-5.0); ANION GAP 11.4 mmol/L (8-16); BILIRUBIN - TOTAL 0.3 mg/dL (0.2-1.3); C-REACTIVE PROTEIN 2.3 mg/dL (0.0-0.9); CALCIUM 7.8 mg/dL (8.5-10.1); CREATININE - SERUM 0.8 mg/dL (0.6-1.3); POTASSIUM - SERUM 3.4 mmol/L (3.5-5.1); PROTEIN - SERUM 5.3 g/dL (6.4-8.2)
[2019-07-12 08:11] VITALS: BP 178/81
[2019-07-12 08:33] LABS: ERYTHROCYTE SEDIMENTATION RATE 39 mm/hr (0-30)
[2019-07-12 12:30] VITALS: BP 159/71
[2019-07-12] MEDS ORDERED: VANCOMYCIN 1 GM/1 G1 IV (12:46)
[2019-07-12] MEDS ORDERED: IPRAT-ALBUT 0.5-3 ML UPD (12:46)
[2019-07-12] MEDS ORDERED: LISINOPRIL10 MG PO (12:47)
--- NOTE | 2019-07-12 14:08 | NUR ---
IV RESITED TO LEFT FOREARM X 1 STICK 22G, PATIENT TOLERATED WELL
--- NOTE | 2019-07-12 16:52 | NUR ---
OT NOTE: PT PERFORMED BETTER TODAY. NO CRYING EPISODES THROUGHOUT ENTIRE TMT SESSION. PT DID COMPLAIN OF PAIN, BUT NOT OFTEN USUAL. BED MOB WITH SPV AND EXT TIME; ABLE TO JIE GOWN WITH MIN ASSIST; CONT TO REQUIRE EXT ASSIST WITH SOCKS; SIT TO STAND WITH MIN ASSIST; AMB WITH WALKER AND MIN/MOD ASSIST X 2 X 40+ FT. AGREEABLE TO SIT UP IN CHAIR TODAY; TRANSFERRED TO CHAIR WITH MIN ASSIST; SIMPLE GROOMING TASK WITH SET UP. YA SWANSONOTR/L
--- NOTE | 2019-07-12 17:07 | NUR ---
REPORT CALLED TO GURWINDER IN IP REHAB. PATIENT TAKEN BY WHEELCHAIR
--- NOTE | 2019-07-12 18:46 | NUR ---
OT NOTE: PT REQUIRED MIN A FOR SIT TO STAND. PT REQUIRED CGA/MIN A FOR ADL MOB. PT COMPLETED SIT TO SUPINE WITH MIN A. PT COMPLETED HAND WASHING CGA. THANK YOU,DEJAH STILL
--- NOTE | 2019-07-17 13:52 | MORECARE ---
CASE MANAGEMENT DISCHARGE SUMMARY PATIENT: SHE MARTINEZ UNIT: [id number] ADM DATE: 07/05/19 AGE: 79 : 42 SEX: F ROOM/BED: D.2212 AUTHOR: LISA ZELAYA PHYSICIAN: REFERRING PHYSICIAN: SKYLA ESPINOSA MD DATE OF SERVICE: 07/17/19 Discharge Plan Patient Name: SHE MARTINEZ Facility[facility]:[place] : 1940 Planned Disposition: Anticipated Discharge Date: Discharge Date: 07/12/2019 Expected LOS: Initial Reviewer: [email or web address] Initial Review Date: 07/04/2019 Generated: 07/17/19 2:52 pm DCP- Discharge Planning Updated by [email or web address]: Vera Florentino on 07/10/19 2:[address] SPOKE WITH PATIENT & DAUGHTER ABOUT DC PLANNING. SHE WOULD LIKE TO GO TO INPATIENT REHAB AT [facility]. AFTER SPEAKING WITH DR CHANDLER AND DR NO. WE WILL STOP ABX AND SEE HOW PATIENT DOES OVER NIGHT. ANTICIPATE DC TOMORROW TO INPATIENT REHAB TOMORROW IF STABLE. IMM SERVED AND EXPLAINED. CAROLYN SIGNED AND PLACED IN CHART DCP- Discharge Planning Updated by [email or web address]: Bailey Dubon on 07/04/19 9:[address] CM met with patient to discuss dc plans/needs. Patient is in agreement to proceed with assessment with her daughter, Estephania Jett present. Patient is alert/oriented, very [place]. Stairs/steps: 4 w/o rails entry. PCP: Dr. Espinosa. Pharmacy: [facility]. HHS: Does not remember name. DME: Walker, Cane, Shower chair, Raised toilet. Emergency contact: Estephania Casey (dtr) [phone]. Partial ADL's: Bathing, dressing, meal preparation, transportation. Denies additional services at this time and feels safe returning to previous environment. Advised patient/daughter about Rehab, HHS. Patient's daughter is in agreement to REHAB or HHS with physical therapy. 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 Transportation at time of discharge: Estephania Jett (dtr) [phone]. CM will assist as needed PRN. DCPIA - Discharge Planning Initial Assessment Updated by [email or web address]: Bailey Dubon on 07/04/19 2:23 pm * Is the patient Alert and Oriented? Yes * How many steps to enter\exit or inside your home? * PCP Dr. Espinosa * Pharmacy [facility] * Preadmission Environment Home with Family * ADLs Partial Dependent * Partial ADLs (Assistance needed) Ambulation Bathing Dressing Toileting Transfers * Equipment Cane Elevated [place] Seat Rolling Walker Shower Chair Walker * List name and contact numbers for known caregivers / representatives who currently or will assist patient after discharge: Estephaniapatricia Jett (dtr) [phone] * Verbal permission to speak to the caregivers and representatives has been obtained from the patient. Yes * Community resources currently utilized None * Additional services required to return to the preadmission environment? Yes * Can the patient safely return to the preadmission environment? No * Has this patient been hospitalized within the prior 30 days at any hospital? No Coverage Notice Reviewer: [id number] - Bailey Dubon Notice Issued Date-Time: 07/05/2019 10:28 Notice Type: Medicare Outpatient Observation Notice Notice Delivered To: Patient Relationship to Patient: Self Patient Advocate Name: She Martinez Delivery Method: HAND - Hand Delivered Henny Days: Prior Verbal Notification: Recipient Understood Notice: Yes Recipient Signature: Yes Med Rec Note Co-signed by Attending: Coverage Notice Comment: RAMIREZ delivered to and signed by patient. Original given to patient and placed on chart. Reviewer: [email or web address] Gayathri Florentino Notice Issued Date-Time: 07/10/2019 14:00 Notice Type: Patient Choice Letter Notice Delivered To: Patient Relationship to Patient: Power of Concrete Boom Pump Operator Patient Advocate Name: ANDREI JETT (DAUGHT Delivery Method: HAND - Hand Delivered Henny Days: Prior Verbal Notification: Recipient Understood Notice: Yes Recipient Signature: Yes Med Rec Note Co-signed by Attending: Coverage Notice Comment: CAROLYN FOR INPATIENT REHAB Reviewer: [email or web address] Gayathri Florentino Notice Issued Date-Time: 07/10/2019 14:00 Notice Type: IM Discharge Notice Notice Delivered To: Patient Relationship to Patient: Power of Concrete Boom Pump Operator Patient Advocate Name: ANDREI JETT Delivery Method: HAND - Hand Delivered Henny Days: Prior Verbal Notification: Recipient Understood Notice: Yes Recipient Signature: Yes Med Rec Note Co-signed by Attending: Coverage Notice Comment: Last DP export: 07/10/19 2:21 p Patient Name: SHE MARTINEZ Page 37424 at 1352 All edits/amendments must be made on the electronic document DICTATION DATE: 07/17/19 1351 DOCKING SAW OPERATOR: ISAURA 07/17/19 1351 RPT#: [id number] DC DATE:07/12/19 STATUS: DIS IN [facility] [address] [place] [address] END OF REPORT
== END 2019-07-12 17:07 | DRG 485 ==
LOC: D.ER 05:56 → D.MS 10:16 → OBSVTIME 11:04 → D.MS 07-05 11:56
PROVIDERS: Family Medicine; Internal Medicine Nephrology; Orthopaedic Surgery; ADMIT Family Medicine; ATTEND Family Medicine
PROC: 0SBC4ZZ Excision of Right Knee Joint, Percutaneous Endoscopic Approach (ICD-10-PCS; principal; 2019-07-05)
PROC: 0S9D3ZX Drainage of Left Knee Joint, Percutaneous Approach, Diagnostic (ICD-10-PCS; 2019-07-05)
DX: M00.9 Pyogenic arthritis, unspecified (principal); R53.2 Functional quadriplegia; E87.1 Hypo-osmolality and hyponatremia; G72.81 Critical illness myopathy; E44.0 Moderate protein-calorie malnutrition; I10 Essential (primary) hypertension; E03.9 Hypothyroidism, unspecified; E78.5 Hyperlipidemia, unspecified; K21.9 Gastro-esophageal reflux disease without esophagitis; F41.9 Anxiety disorder, unspecified; D50.9 Iron deficiency anemia, unspecified; M06.9 Rheumatoid arthritis, unspecified; Z68.26 Body mass index [BMI] 26.0-26.9, adult

== ENCOUNTER 2019-07-12 14:29 | Inpatient (IN) | payer MEDICARE, OTHER ==
[~2019-07-12] VITALS: Ht 152.4 cm; Wt 66.7 kg
--- NOTE | ~2019-07-12 | RHP ---
PATIENT: SHE MUHAMMAD MEDICAL RECORD: [id number] ACCOUNT: [id number] [facility] Dieudonne[facility] : [birth year] ADMISSION DATE: 07/12/19 REHABILITATION HISTORY AND PHYSICAL EXAMINATION POST ADMISSION PHYSICIAN EXAMINATION ADMITTING DIAGNOSIS: Septic arthritis in both knees HISTORY OF PRESENT ILLNESS: The patient is a 79-year-old female patient, who has a history of osteoarthritis for which she seen in the pain clinic down in [place]. She presented to the ED with complaints of bilateral leg pain and knee pain and shoulder pain. No trauma reported. The patient had steroid shots before that did not really work for her. She had a Botox injection 1 week prior to this by Dr. Goodwin. She had severe pain. She apparently was having problems getting in and out of bed, was unable to stand for any extended period of time. The patient had x-rays of her knees done. On 07/07/2019, she went to the OR for arthroscopic irrigation and debridement of bilateral knees for bilateral septic arthritis. Postop, she developed severe anemia with H&H of 7 and 24. She did receive 2 units of packed red blood cells. Previously, she lived with her daughter and was moderately independent with ADLs and use of rolling walker. Currently, she is mod-to-max assist for ADLs and mobility. Her activity level is affected by pain, weakness and deconditioned. She would like to be able to return home at her prior level of function or better. COMORBIDITIES: Include acute blood loss anemia, weakness, suprapatellar effusion, bilateral septic knees, rheumatoid arthritis, leukocytosis, moderate protein-calorie malnutrition, hypertension, hypothyroidism, anxiety, gastroesophageal reflux disease, low sodium, orthostatic hypotension and chronic pain. PAST MEDICAL HISTORY: Significant for a history of hyperlipidemia, thyroid problems, got a history of acid reflux, arthritis, chronic pain and osteoarthritis. PAST SURGICAL HISTORY: Includes hysterectomy. She has got a history of gallbladder surgery, bladder sling and shoulder surgery. ALLERGIES: DEMEROL. CURRENT MEDICATIONS: Include vancomycin 1 gram every 24 hours. She had a total of 40 dosage of this. She is on Floranex daily, multivitamin 1 tab daily, Zestril 20 mg daily, Cymbalta 30 mg daily, Caltrate 500 mg daily, Synthroid 88 mcg daily, tizanidine 4 mg b.i.d., Protonix 40 mg at bedtime, Namenda 5 mg b.i.d., lorazepam 0.5 mg t.i.d., DuoNeb updrafts, and [place] 7.5 one tab every 12 hours p.r.n. HABITS: No alcohol or tobacco use. FAMILY HISTORY: Noncontributory. SOCIAL HISTORY: The patient hopes to return back home. She does have a daughter who gives her strong social support. REVIEW OF SYSTEMS: GENERAL: Does complain of some weakness and fatigue. HISTORY AND PHYSICAL [id number] SHE MUHAMMAD HATTIE HEENT: Denies cold, cough, or congestion. CARDIOVASCULAR: Denies chest pain. PHYSICAL EXAMINATION: VITAL SIGNS: Stable, afebrile. GENERAL: A well-developed elderly female, in no acute distress, alert upon exam. HEENT: Normocephalic and atraumatic. Mucosa moist. NECK: Supple. No lymphadenopathy. LUNGS: Clear at this time. No wheezing, rhonchi or rales. HEART: Has a regular rate and rhythm. No murmurs, rubs or gallops. ABDOMEN: Soft, benign and nondistended. Positive bowel sounds times 4. EXTREMITIES: Does have postop swelling of both knees, but they looked pretty good. NEUROLOGIC: She does have noted weakness and pain to any type of movement or palpation. LABORATORY DATA: White count 7.3, H&H of 11 and 34 and platelet count is 605. Her sodium is 143, potassium 3.7, BUN and creatinine of 7 and 0.7. Blood sugar is noted to be 94. ASSESSMENT: This is a 79-year-old female patient admitted to rehab with a working diagnosis of bilateral septic arthritis. The patient has potential to make improvement. We instituted the following multidisciplinary therapies including, but not limited to physical, occupational, respiratory, speech, nutritional services, prosthetics and orthotics. Given her complex medical condition and risk for more complications, rehabilitation services cannot be provided at a low level of care such as prison facility. PLAN: 1. Admit to [facility] for intensive inpatient therapy to include the following disciplines; A. Physical therapy to improve gait, all transfer skills and bed mobility to a modified independent level. B. Occupational therapy to a modified independent level. C. Case management to assist with discharge planning and placement options. D. Nutrition to assist with nutritional needs. E. Rehabilitation nursing to assist in monitoring the patient's underlying medical conditions and to assist with any type of bowel or bladder management. 2. The patient's current medication and medical care will be continued. 3. The patient will be placed on standard fall precautions. 4. The patient's estimated length of stay is approximately 7-10 days. 5. Discuss the patient during care team staff meeting this week and I am going to see again in the a.m. TRANSINT:[id number] Voice Confirmation ID: [id number] DOCUMENT ID: [id number] DANILO notes whether there has been none or any medical/functional change since admission: - No change since prescreen. DANILO attests patient continues to be appropriate for IRF: - Continues to be appropriate. HISTORY AND PHYSICAL [id number] SHE MUHAMMAD,BINH POLLACK MD CC: [id number] DICTATION DATE: 07/13/19 0840 LOCOMOTIVE FIRER/FIREMAN: 07/13/19 1003 ADM IN [facility] [address] [place] [address]
[~2019-07-12 14:29] MED LIST changes: +CYMBALTA30 MG PO; +IPRAT-ALBUT 0.5-3 ML UPD; +LISINOPRIL10 MG PO; +VANCOMYCIN 1 GM/1 G1 IV
--- NOTE | 2019-07-12 17:07 | NUR ---
PATIENT ARRIVED FROM MED FLOOR IN TO ROOM 1111B. ALERT ADN ORIENTED. SKIN CDI. SM INCISION SITES TO ANGLE KNEES WITH SUTURES WITH BAND AIDS COVERING SITES. CL IN REACH. SAFETY PRECAUTIONS GIVEN.
[2019-07-12 17:15] VITALS: BP 183/78
[2019-07-12 19:40] VITALS: BP 106/55; BP 164/65
--- NOTE | 2019-07-12 19:56 | NUR ---
AWAKE AND ALERT. RESPIRATIONS UNLABORED. ASSISTED TO VOID ON BEDPAN. TOLERATED WELL. NO ACUTE DISTRESS NOTED. CALL LIGHT IN REACH.
--- NOTE | 2019-07-13 00:13 | NUR ---
RESTING IN BED WITH RESPIRATIONS UNLABORED. NO DISTRESS NOTED. CALL LIGHT IN REACH.
--- NOTE | 2019-07-13 02:58 | NUR ---
SLEEPING WITH RESPIRAITONS UNLABORED. NO DISTRESS NOTED. CALL LIGHT IN REACH.
--- NOTE | 2019-07-13 05:26 | NUR ---
QUIET HOURS. NO ACUTE CHANGES IN CONDITION THIS SHIFT. HAD ONE LOOSE STOOL THIS SHIFT. RESPIRATIONS UNLABORED. CALL LIGHT IN REACH.
[2019-07-13 06:22] LABS: CALC OSMOLALITY 282 mosm/kg (275-300); CALCIUM 8.4 mg/dL (8.5-10.1); CARBON DIOXIDE 28.6 mmol/L (21.0-32.0); CHLORIDE - SERUM 107 mmol/L (98-107); CREATININE - SERUM 0.7 mg/dL (0.6-1.3); GLUCOSE 94 mg/dL (74-106); POTASSIUM - SERUM 3.7 mmol/L (3.5-5.1); SODIUM 143 mmol/L (136-145); UREA NITROGEN 7 mg/dL (7-18); eGFR NON AFRICAN AMERICAN 86 mL/min (90-120)
[2019-07-13 07:06] LABS: HEMATOCRIT 34.6 % (36.0-48.0); HEMOGLOBIN 11.4 g/dL (12-16); MCH 27.1 pg (26.0-34.0); MCHC 32.9 g/dL (31.0-37.0); MCV 82.2 fL (80.0-100.0); MEAN PLATELET VOLUME 8.2 fL (7.4-10.4); NEUTROPHILS 67.9 % (40-80); PLATELET COUNT 605 10x3/uL (130-400); RBC 4.21 10x6/uL (4.00-5.40); WBC 11.3 10x3/uL (4.8-10.8)
--- NOTE | 2019-07-13 08:00 | NUR ---
shift assmt conpleted.breakfast tray given.cl in reach.
[2019-07-13 08:23] VITALS: BP 132/72
--- NOTE | 2019-07-13 12:00 | NUR ---
eating lunch up in wc.
[2019-07-13 15:23] VITALS: Ht 152.4 cm; Wt 66.7 kg
--- NOTE | 2019-07-13 16:00 | NUR ---
remains up in wc.assisted to bathroom and bed.will continue to monitor.
--- NOTE | 2019-07-13 16:04 | NUR ---
PATIENT ADMITTED TO REHAB FROM ACUTE FLOOR. DR. BERMEO IS PATIENT PCP. SHE WILL NEED AN APPOINTMENT WITH DR. NO AT [facility]. DME AT HOME IS A CANE, WALKER, AND A SHOWER CHAIR. DISCHARGE PLANS ARE FOR HER TO RETURN HOME WITH FAMILY. WILL CONTINUE TO FOLLOW WITH PATIENT.
[2019-07-13 19:27] VITALS: BP 173/73
--- NOTE | 2019-07-13 19:52 | NUR ---
AWAKE AND ALERT. RESTING IN BED WITH RESPIRATIONS UNLABORED. NO ACUTE DISTRESS NOTED. CALL LIGHT IN REACH.
--- NOTE | 2019-07-13 23:43 | NUR ---
RESTING IN BED WITH RESPIRATIONS UNLABORED. NO DISTRESS NOTED. CALL LIGHT IN REACH.
--- NOTE | 2019-07-14 02:27 | NUR ---
CONTINUES SLEEPING WITH RESPIRATIONS UNLABORED. WAS ASSISTED TO BATHROOM ABOUT AN HOUR AGO BUT NOW RESTING. NO DISTRESS NOTED.
--- NOTE | 2019-07-14 05:34 | NUR ---
QUIET HOURS. RESPIRATIONS UNLABORED. NO ACUTE DISTRESS NOTED. NO CHANGES IN CONDITION THIS SHIFT.
[2019-07-14 05:59] LABS: BASOPHILS 0 % (0-2); EOSINOPHILS 2.4 % (0-7); HEMOGLOBIN 10.3 g/dL (12-16); IMMATURE GRANULOCYTES 1.5 % (0-5); LYMPHOCYTES 17.7 % (15-50); MCH 25.9 pg (26.0-34.0); MCHC 32.2 g/dL (31.0-37.0); MCV 80.4 fL (80.0-100.0); MEAN PLATELET VOLUME 8.6 fL (7.4-10.4); MONOCYTES 7.4 % (2-11); PLATELET COUNT 552 10x3/uL (130-400); RBC 3.98 10x6/uL (4.00-5.40); RDW 18.8 % (11.5-14.5)
[2019-07-14 06:11] LABS: CALC OSMOLALITY 280 mosm/kg (275-300); CALCIUM 8.3 mg/dL (8.5-10.1); CARBON DIOXIDE 30.9 mmol/L (21.0-32.0); CHLORIDE - SERUM 107 mmol/L (98-107); CREATININE - SERUM 0.7 mg/dL (0.6-1.3); GLUCOSE 101 mg/dL (74-106); POTASSIUM - SERUM 3.7 mmol/L (3.5-5.1); SODIUM 142 mmol/L (136-145); UREA NITROGEN 7 mg/dL (7-18); eGFR NON AFRICAN AMERICAN 86 mL/min (90-120)
--- NOTE | 2019-07-14 08:05 | NUR ---
PT RESTING IN BED WITH EYES OPEN CALL LIGHT IN REACH WILL MONITER
[2019-07-14 08:13] VITALS: BP 167/64
--- NOTE | 2019-07-14 18:17 | NUR ---
PT RESTING IN BED WITH EYES OPEN CALL LIGHT IN REACH NO PROBLEMS WILL MONITER
[2019-07-14 19:30] VITALS: BP 160/71
--- NOTE | 2019-07-14 19:30 | NUR ---
BEDSIDE REPORT COMPLETE. PT SITTING UP ON SIDE OF BED ALERT AND ORIENTED X4. DENIES ANY NEEDS OR PAIN. RR EVEN AND UNLABORED. LEFT FOREARM SL FREE FROM REDNESS OR SWELLING. DRESSING C/D/I. VS STABLE. SHIFT ASSESSMENT COMPLETE. CL IN REACH. BED ALARM ON. WILL CONTINUE TO MONITOR
--- NOTE | 2019-07-14 23:10 | NUR ---
QUIET HOURS. PT LYING IN BED SUPINE EYES CLOSED RESTING. RR EVEN AND UNLABORED. CL IN REACH
--- NOTE | 2019-07-15 03:15 | NUR ---
PT LYING IN BED SUPINE EYES CLOSED RESTING QUIETLY. RR EVEN AND UNLABORED. CL IN REACH. BED ALARM ON
[2019-07-15 06:37] LABS: CALCIUM 8.5 mg/dL (8.5-10.1); CARBON DIOXIDE 32.7 mmol/L (21.0-32.0); CHLORIDE - SERUM 106 mmol/L (98-107); CREATININE - SERUM 0.7 mg/dL (0.6-1.3); GLUCOSE 106 mg/dL (74-106); SODIUM 142 mmol/L (136-145); eGFR NON AFRICAN AMERICAN 86 mL/min (90-120)
[2019-07-15 06:39] LABS: BASOPHILS 0.1 % (0-2); HEMATOCRIT 33.6 % (36.0-48.0); HEMOGLOBIN 10.7 g/dL (12-16); IMMATURE GRANULOCYTES 0.4 % (0-5); LYMPHOCYTES 18.5 % (15-50); MCH 26.3 pg (26.0-34.0); MCHC 31.8 g/dL (31.0-37.0); MEAN PLATELET VOLUME 8.8 fL (7.4-10.4); MONOCYTES 8.5 % (2-11); NEUTROPHILS 71.5 % (40-80); PLATELET COUNT 590 10x3/uL (130-400); RBC 4.07 10x6/uL (4.00-5.40); RDW 19.6 % (11.5-14.5); WBC 11.4 10x3/uL (4.8-10.8)
[2019-07-15 06:40] LABS: CALC OSMOLALITY 281 mosm/kg (275-300); POTASSIUM - SERUM 4.4 mmol/L (3.5-5.1); UREA NITROGEN 10 mg/dL (7-18)
[2019-07-15 06:41] LABS: MCV 82.6 fL (80.0-100.0)
[2019-07-15 08:00] VITALS: BP 191/85
--- NOTE | 2019-07-15 08:00 | NUR ---
PATIENT IS ALERT/ORIENT. CALL LIGHT WITHIN REACH. VOICES NO NEEDS AT THIS TIME. WILL CONTINUE WITH PLAN OF CARE
--- NOTE | 2019-07-15 10:10 | NUR ---
PATIENT IN REHAB ROOM. WORKING WITH PHYSICAL THERAPIST. DENIES ANY PAIN/DISC AT THIS TIME.
--- NOTE | 2019-07-15 14:36 | NUR ---
PATIENT RESTING WELL IN BED AFTER THERAPY. CALL LIGHT WITHIN REACH
--- NOTE | 2019-07-15 18:20 | NUR ---
PATIENT SITTING UP BY THE SIDE OF THE BED TO EAT SUPPER. CALL LIGHT WITH REACH. VOICES NO NEEDS AT THIS TIME.
--- NOTE | 2019-07-15 19:15 | NUR ---
BEDSIDE REPORT COMPLETE. PT LYING IN BED SUPINE EYES CLOSED RESTING COMFORTABLY. EASILY AROUSED WITH VERBAL STIMULI. DENIES ANY NEEDS OR PAIN. NO SIGNS OF ACUTE DISTRESS NOTED. CL IN REACH. BED ALARM ON. WILL CONTINUE TO MONITOR
[2019-07-15 20:18] VITALS: BP 179/71
--- NOTE | 2019-07-15 23:10 | NUR ---
PT LYING IN BED SUPINE EYES CLOSED RESTING QUIETLY. RR EVEN AND UNLABORED. CL IN REACH
--- NOTE | 2019-07-16 02:15 | NUR ---
ASSISTED PT TO RESTROOM AND BACK TO BED WITH MIN ASSIST. NO SIGNS OF ACUTE DISTRESS NOTED. CL IN REACH
--- NOTE | 2019-07-16 03:06 | NUR ---
PT LYING IN BED SUPINE EYES CLOSED RESTING COMFORTABLY. RR EVEN AND UNLABORED. CL IN REACH.
[2019-07-16 05:49] LABS: BASOPHILS 0.2 % (0-2); EOSINOPHILS 2.2 % (0-7); HEMATOCRIT 32.1 % (36.0-48.0); IMMATURE GRANULOCYTES 0.4 % (0-5); LYMPHOCYTES 17.2 % (15-50); MCH 25.8 pg (26.0-34.0); MCHC 31.2 g/dL (31.0-37.0); MCV 82.7 fL (80.0-100.0); MEAN PLATELET VOLUME 8.8 fL (7.4-10.4); MONOCYTES 11.5 % (2-11); NEUTROPHILS 68.5 % (40-80); PLATELET COUNT 534 10x3/uL (130-400); RBC 3.88 10x6/uL (4.00-5.40); RDW 19.9 % (11.5-14.5); WBC 10.2 10x3/uL (4.8-10.8)
--- NOTE | 2019-07-16 06:00 | NUR ---
PT LYING IN BED AWAKE AND ALERT. MORNING MEDS GIVEN. DENIES ANY NEEDS OR PAIN. TOILETING OFFERED. CALL LIGHT AND WATER WITHIN REACH
[2019-07-16 06:06] LABS: CALC OSMOLALITY 284 mosm/kg (275-300); CALCIUM 8.2 mg/dL (8.5-10.1); CARBON DIOXIDE 31.2 mmol/L (21.0-32.0); CHLORIDE - SERUM 106 mmol/L (98-107); CREATININE - SERUM 0.7 mg/dL (0.6-1.3); GLUCOSE 102 mg/dL (74-106); POTASSIUM - SERUM 4.5 mmol/L (3.5-5.1); SODIUM 143 mmol/L (136-145); UREA NITROGEN 12 mg/dL (7-18); eGFR NON AFRICAN AMERICAN 86 mL/min (90-120)
--- NOTE | 2019-07-16 08:15 | NUR ---
PT RESTING IN BED WITH EYES OPEN CALL LIGHT IN REACH NO PROBLEMS WILL MONITER
[2019-07-16 18:10] VITALS: BP 164/67
--- NOTE | 2019-07-16 19:20 | NUR ---
BEDSIDE REPORT COMPLETE. PT LYING IN BED EYES CLOSED RESTING. RR EVEN AND UNLABORED. NO SIGNS OF ACUTE DISTRESS NOTED. VS STABLE. SHIFT ASSESSMENT COMPLETE. CL IN REACH. BED ALARM ON. WILL CONTINUE TO MONITOR
[2019-07-16 20:27] VITALS: BP 155/68
--- NOTE | 2019-07-17 00:07 | NUR ---
QUIET HOURS. PT LYING IN BED SUPINE EYES CLOSED RESTING. RR EVEN AND UNLABORED. CL IN REACH
--- NOTE | 2019-07-17 04:16 | NUR ---
ASSISTED PT TO RESTROOM AND BACK TO BED WITH SBA. RR EVEN AND UNLABORED. CL IN REACH
[2019-07-17 06:13] LABS: BASOPHILS 0.2 % (0-2); EOSINOPHILS 2.5 % (0-7); HEMATOCRIT 31.5 % (36.0-48.0); HEMOGLOBIN 9.9 g/dL (12-16); IMMATURE GRANULOCYTES 0.2 % (0-5); LYMPHOCYTES 20.8 % (15-50); MCH 26.2 pg (26.0-34.0); MCHC 31.4 g/dL (31.0-37.0); MCV 83.3 fL (80.0-100.0); MEAN PLATELET VOLUME 8.9 fL (7.4-10.4); MONOCYTES 12.5 % (2-11); NEUTROPHILS 63.8 % (40-80); PLATELET COUNT 528 10x3/uL (130-400); RBC 3.78 10x6/uL (4.00-5.40); RDW 20.3 % (11.5-14.5); WBC 8.5 10x3/uL (4.8-10.8)
[2019-07-17 06:25] LABS: CALC OSMOLALITY 278 mosm/kg (275-300); CALCIUM 8.7 mg/dL (8.5-10.1); CHLORIDE - SERUM 104 mmol/L (98-107); CREATININE - SERUM 0.7 mg/dL (0.6-1.3); GLUCOSE 93 mg/dL (74-106); POTASSIUM - SERUM 5.1 mmol/L (3.5-5.1); SODIUM 139 mmol/L (136-145); eGFR NON AFRICAN AMERICAN 86 mL/min (90-120)
[2019-07-17 06:27] LABS: UREA NITROGEN 16 mg/dL (7-18)
[2019-07-17 08:00] VITALS: BP 177/69
--- NOTE | 2019-07-17 08:00 | NUR ---
PATIENT IS ALERT/ORIENT. SITTING UP AT THE SIDE OF THE BED TO EAT BREAKFAST. VOICES NO NEEDS AT THIS TIME. WILL CONTINUE WITH PLAN OF CARE
--- NOTE | 2019-07-17 08:30 | NUR ---
PATIENT IN REHAB ROOM. WORKING WITH PHYSICAL THERAPIST. REQUEST PAIN MEDICATION FOR BILATERAL KNEE PAIN.
--- NOTE | 2019-07-17 13:18 | NUR ---
PATIENT HELPED WITH SHOWER BY THIS NURSE. PATIENT ABLE TO WASH AND DRY MOST OF SELF. SET UP NEEDED. LINENS ON BED CHANGED WHILE PATIENT IN SHOWER.
--- NOTE | 2019-07-17 14:26 | NUR ---
Nutrition Follow-up: Diet: Regular + Ensure TID PO intake: ~62% average x last 12 meals. She reports appetite is "not good." States that she eats about half of her food. States that she is drinking most of the Ensure however. Last BM: 07/17/19 x 2. WT: 147# (07/13/19) Significant meds: vancomycin. Labs reviewed. Continue current nutrition regimen. RD following.
--- NOTE | 2019-07-17 16:12 | NUR ---
PATIENT RESTING IN BED. VISITORS IN ROOM. VOICES NO NEEDS. CALL LIGHT WITHIN REACH
--- NOTE | 2019-07-17 18:37 | NUR ---
IV ANTIBIOTIC RUNNING. LEFT FOREARM.
[2019-07-17 20:00] VITALS: BP 161/67
--- NOTE | 2019-07-17 20:00 | NUR ---
BEDSIDE REPORT COMPLETE. PT LYING IN BED SUPINE EYES CLOSED RESTING. EASILY AROUSED WITH VERBAL STIMULI. LEFT FOREARM IV INFUSING VANCOMYCIN @ 167ML/HR. NO S/S OF INFILTRATION NOTED. DRSG C/D/I. DENIES ANY NEEDS OR PAIN. VS STABLE. SHIFT ASSESSMENT COMPLETE. CL IN REACH. BED ALARM ON. WILL CONTINUE TO MONITOR
--- NOTE | 2019-07-17 23:59 | NUR ---
QUIET HOURS. PT LYING IN BED ON RIGHT SIDE EYES CLOSED RESTING COMFORTABLY. RR EVEN AND UNLABORED. CL IN REACH
--- NOTE | 2019-07-18 04:11 | NUR ---
PT LYING IN BED ON LEFT SIDE EYES CLOSED RESTING. RR EVEN AND UNLABORED. CL IN REACH
--- NOTE | 2019-07-18 04:55 | NUR ---
ASSISTED TO RESTROOM AND BACK TO BED WITH MIN ASSIST. CL IN REACH
[2019-07-18 05:55] LABS: BASOPHILS 0.2 % (0-2); EOSINOPHILS 2.3 % (0-7); HEMATOCRIT 30.3 % (36.0-48.0); HEMOGLOBIN 9.4 g/dL (12-16); IMMATURE GRANULOCYTES 0.2 % (0-5); LYMPHOCYTES 21.8 % (15-50); MCV 83.7 fL (80.0-100.0); MEAN PLATELET VOLUME 9.2 fL (7.4-10.4); MONOCYTES 14.2 % (2-11); NEUTROPHILS 61.3 % (40-80); PLATELET COUNT 538 10x3/uL (130-400); RBC 3.62 10x6/uL (4.00-5.40); RDW 20.1 % (11.5-14.5); WBC 8.8 10x3/uL (4.8-10.8)
[2019-07-18 06:15] LABS: ANION GAP 8.4 mmol/L (8-16); CALCIUM 8.6 mg/dL (8.5-10.1); CARBON DIOXIDE 30.4 mmol/L (21.0-32.0); CREATININE - SERUM 0.8 mg/dL (0.6-1.3); POTASSIUM - SERUM 4.8 mmol/L (3.5-5.1)
--- NOTE | 2019-07-18 06:15 | NUR ---
REMOVED 3 SUTURES FROM RIGHT KNEE AND 4 SUTURES FROM LEFT KNEE. PT TOLERATED WELL
[2019-07-18 08:00] VITALS: BP 148/67
[2019-07-18 20:12] VITALS: BP 130/70
--- NOTE | 2019-07-18 20:20 | NUR ---
AWAKE AND ALERT. RESTING IN BED. RESPIRATIONS UNLABORED. NO ACUTE DISTRESS NOTED. CALL LIGHT IN REACH.
--- NOTE | 2019-07-19 01:12 | NUR ---
ASSISTED TO BATHROOM AND BACK TO BED. NOW RESTING WITH NO DISTRESS NOTED. CALL LIGHT IN REACH.
--- NOTE | 2019-07-19 03:05 | NUR ---
CONTINUES SLEEPING WITH RESPIRATIONS UNLABORED. NO DISTRESS NOTED. CALL LIGHT IN REACH.
--- NOTE | 2019-07-19 05:11 | NUR ---
QUIET HOURS. UP X 3 TO BATHROOM BUT RESTED MOST OF TIME IN BETWEEN. NO ACUTE CHANGES IN CONDITION THIS SHIFT. RESTING IN BED NOW WITH NO DISTRESS NOTED.
[2019-07-19 06:21] LABS: BASOPHILS 0.3 % (0-2); HEMATOCRIT 31.3 % (36.0-48.0); HEMOGLOBIN 9.7 g/dL (12-16); IMMATURE GRANULOCYTES 0.1 % (0-5); LYMPHOCYTES 19.8 % (15-50); MCH 26.2 pg (26.0-34.0); MCV 84.6 fL (80.0-100.0); MEAN PLATELET VOLUME 9.2 fL (7.4-10.4); MONOCYTES 13.7 % (2-11); NEUTROPHILS 63.1 % (40-80); PLATELET COUNT 545 10x3/uL (130-400); RDW 20.3 % (11.5-14.5); WBC 7.7 10x3/uL (4.8-10.8)
[2019-07-19 07:09] LABS: CALC OSMOLALITY 281 mosm/kg (275-300); CALCIUM 8.7 mg/dL (8.5-10.1); CARBON DIOXIDE 30.3 mmol/L (21.0-32.0); CHLORIDE - SERUM 104 mmol/L (98-107); CREATININE - SERUM 0.7 mg/dL (0.6-1.3); GLUCOSE 92 mg/dL (74-106); POTASSIUM - SERUM 4.8 mmol/L (3.5-5.1); SODIUM 140 mmol/L (136-145); UREA NITROGEN 21 mg/dL (7-18); eGFR NON AFRICAN AMERICAN 86 mL/min (90-120)
[2019-07-19 07:46] VITALS: BP 179/74
--- NOTE | 2019-07-19 08:00 | NUR ---
SHIFT ASSMT COMPLETED.BREAKFAST TRAY GIVEN.CL IN REACH.
--- NOTE | 2019-07-19 12:00 | NUR ---
UP IN WC;FAMILY VISITING.
--- NOTE | 2019-07-19 14:00 | NUR ---
INQUIRING NOTE FAXED TO [facility] FOR [place] OF IV MEDICATIONS FOR PATIENT. WILL CONTINUE TO FOLLOW WITH PATIENT.
--- NOTE | 2019-07-19 15:28 | NUR ---
Nutrition Follow-up: Diet: Regular + Ensure TID PO intake: ~75% average x 3 meals on 07/17/19, none new recorded. She reports a "normal" appetite. Is drinking Ensure. No needs at this time. Last BM: 07/18/19 x 2. WT: 147# (07/13/19), no new wt Significant Meds: vancomycin. Labs reviewed Continue current nutrition regimen. RD following.
--- NOTE | 2019-07-19 16:14 | NUR ---
CARE TEAM MEETING: PATIENT AND HER DAUGHTERS ATTENDED MEETING. THEIR QUESTIONS AND CONCERNS WERE ADDRESSED, WILL CONTINUE TO FOLLOW WITH PATIENT.
--- NOTE | 2019-07-19 19:25 | NUR ---
BEDSIDE REPORT COMPLETE. PT SITTING UP IN WC WATCHING TV. ALERT AND ORIENTED X3. DENIES ANY NEEDS OR PAIN. RR EVEN AND UNLABORED. CL IN REACH. FALL PRECAUTIONS IN PLACE. WILL CONTINUE TO MONITOR
[2019-07-19 21:21] VITALS: BP 169/69
--- NOTE | 2019-07-20 00:08 | NUR ---
QUIET HOURS. PT LYING IN BED ON LEFT SIDE EYES CLOSED RESTING COMFORTABLY. RR EVEN AND UNLABORED. CL IN REACH
--- NOTE | 2019-07-20 03:56 | NUR ---
PT LYING IN BED ON LEFT SIDE EYES CLOSED RESTING. RR EVEN AND UNLABORED. CL IN REACH
[2019-07-20 06:29] LABS: BASOPHILS 1.1 % (0-2); EOSINOPHILS 3.4 % (0-7); HEMOGLOBIN 9.3 g/dL (12-16); IMMATURE GRANULOCYTES 0.2 % (0-5); LYMPHOCYTES 28.1 % (15-50); MCH 26.1 pg (26.0-34.0); MCV 84.3 fL (80.0-100.0); MEAN PLATELET VOLUME 9.1 fL (7.4-10.4); MONOCYTES 13.9 % (2-11); NEUTROPHILS 53.3 % (40-80); PLATELET COUNT 564 10x3/uL (130-400); RBC 3.56 10x6/uL (4.00-5.40); RDW 20.2 % (11.5-14.5); WBC 6.1 10x3/uL (4.8-10.8)
[2019-07-20 06:43] LABS: ANION GAP 7.6 mmol/L (8-16); CALCIUM 8.8 mg/dL (8.5-10.1); CARBON DIOXIDE 32.7 mmol/L (21.0-32.0); CREATININE - SERUM 0.9 mg/dL (0.6-1.3); POTASSIUM - SERUM 4.3 mmol/L (3.5-5.1)
--- NOTE | 2019-07-20 06:52 | NUR ---
PT LYING IN BED WATCHING TV. DENIES ANY NEEDS OR PAIN. LEFT FOREARM IV INFUSING VANCOMYCIN @ 167ML/HR. CL IN REACH
--- NOTE | 2019-07-20 08:12 | NUR ---
PT RESTING IN BED WITH EYES OPEN CALL LIGHT IN REACH NO PROBLEMS WILL MONITER
--- NOTE | 2019-07-20 12:09 | NUR ---
PT RESTING IN BED WITH EYES OPEN CALL LIGHT IN REACH NO PROBLEMS WILL MONITER
--- NOTE | 2019-07-20 18:02 | NUR ---
PT RESTING IN BED WITH EYES OPEN CALL LIGHT IN REACH WILL MONITER
[2019-07-20 19:15] VITALS: BP 156/57
--- NOTE | 2019-07-20 19:15 | NUR ---
BEDSIDE REPORT COMPLETE. PT LYING IN BED SUPINE EYES CLOSED RESTING QUIETLY. LEFT FOREARM IV INFUSING VANCOMYCIN @ 167ML/HR. EASILY AROUSED WITH VERBAL STIMULI. DENIES ANY NEEDS OR PAIN. NO SIGNS OF ACUTE DISTRESS NOTED. VS STABLE. SHIFT ASSESSMENT COMPLETE. CL IN REACH. FALL PRECAUTIONS IN PLACE. WILL CONTINUE TO MONITOR
--- NOTE | 2019-07-20 23:55 | NUR ---
ASSISTED PT TO RESTROOM AND BACK TO BED WITH SBA. CL IN REACH
--- NOTE | 2019-07-21 03:45 | NUR ---
ASSISTED PT TO RESTROOM AND BACK TO BED WITH SBA. CL IN REACH
--- NOTE | 2019-07-21 05:18 | NUR ---
CALLED LAB AND ADVISED NOVEMBER OF STAT VANC TROUGH
--- NOTE | 2019-07-21 05:35 | NUR ---
ASSISTED PT TO RESTROOM AND BACK TO BED WITH SBA. CL IN REACH
[2019-07-21 07:28] LABS: BASOPHILS 0.5 % (0-2); EOSINOPHILS 3.6 % (0-7); HEMATOCRIT 29.4 % (36.0-48.0); HEMOGLOBIN 9.2 g/dL (12-16); IMMATURE GRANULOCYTES 0.2 % (0-5); LYMPHOCYTES 32.7 % (15-50); MCH 26.1 pg (26.0-34.0); MCHC 31.3 g/dL (31.0-37.0); MCV 83.5 fL (80.0-100.0); MONOCYTES 15.1 % (2-11); NEUTROPHILS 47.9 % (40-80); PLATELET COUNT 507 10x3/uL (130-400); RBC 3.52 10x6/uL (4.00-5.40); RDW 20.3 % (11.5-14.5); WBC 5.5 10x3/uL (4.8-10.8)
[2019-07-21 07:48] LABS: CALCIUM 8.7 mg/dL (8.5-10.1); CARBON DIOXIDE 30.2 mmol/L (21.0-32.0); CREATININE - SERUM 0.9 mg/dL (0.6-1.3); POTASSIUM - SERUM 4.2 mmol/L (3.5-5.1); VANCOMYCIN - TROUGH 25.9 ug/mL (10.0-20.0)
--- NOTE | 2019-07-21 08:15 | NUR ---
PT RESTING IN BED WITH EYES OPEN CALL LIGHT IN REACH WILL MONITER
[2019-07-21 08:19] VITALS: BP 180/64
--- NOTE | 2019-07-21 16:16 | NUR ---
spoke with dr. rees office about antibiotics for patient to discharge home withas she is unable to pay for the iv medications. it has been recommened that she discharge on bactrium and doxycyline together or to be on vyox. Dr. Jack has been notified .
--- NOTE | 2019-07-21 18:24 | NUR ---
PT RESTING IN BED CALL LIGHT IN REACH WILL MONITER
[2019-07-21 19:51] VITALS: BP 163/60
--- NOTE | 2019-07-21 20:03 | NUR ---
ASSISTED TO BATHROOM AND BACK TO BED. AWAKE AND ALERT. RESPIRATIONS UNLABORED. NO ACUTE DISTRESS NOTED. CALL LIGHT IN REACH.
--- NOTE | 2019-07-22 00:44 | NUR ---
RESTING IN BED WITH EYES CLOSED AND RESPIRATIONS UNALBORED. NO ACUTE DISTRESS NOTED. CALL LIGHT IN REACH.
--- NOTE | 2019-07-22 02:37 | NUR ---
CONTINUES SLEEPING WITH RESPIRATIONS UNLABORED. NO DISTRESS NOTED.
--- NOTE | 2019-07-22 05:01 | NUR ---
ASSISTED TO BATHROOM AND BACK TO BED. SALINE LOCK IN LEFT FOREARM DC'D. TO BE DISCHARGED THIS AM. NO ACUTE DISTRESS NOTED. CALL LIGHT IN REACH.
[2019-07-22 07:04] LABS: BASOPHILS 0.6 % (0-2); EOSINOPHILS 3.6 % (0-7); HEMATOCRIT 30.5 % (36.0-48.0); HEMOGLOBIN 9.7 g/dL (12-16); LYMPHOCYTES 35.8 % (15-50); MCH 26.9 pg (26.0-34.0); MCHC 31.8 g/dL (31.0-37.0); MCV 84.7 fL (80.0-100.0); MEAN PLATELET VOLUME 9.1 fL (7.4-10.4); MONOCYTES 12.5 % (2-11); NEUTROPHILS 47.5 % (40-80); PLATELET COUNT 591 10x3/uL (130-400); RDW 20.2 % (11.5-14.5); WBC 5.2 10x3/uL (4.8-10.8)
[2019-07-22 07:37] LABS: ANION GAP 9.2 mmol/L (8-16); CALCIUM 8.7 mg/dL (8.5-10.1); CARBON DIOXIDE 30.1 mmol/L (21.0-32.0); CREATININE - SERUM 0.9 mg/dL (0.6-1.3); POTASSIUM - SERUM 4.3 mmol/L (3.5-5.1); VANCOMYCIN - RANDOM 15.7 ug/mL (10.0-20.0)
[2019-07-22 08:00] VITALS: BP 166/67
--- NOTE | 2019-07-22 08:00 | NUR ---
SHIFT ASSMT COMPLETED.PLANS TO DC HOME TODAY.
[2019-07-22] MEDS ORDERED: DOXYCYCLINE HY100 M2 PO (12:41)
[2019-07-22] MEDS ORDERED: HYDROCODONE-IB1 EAC3 PO (12:52)
--- NOTE | 2019-07-22 14:00 | NUR ---
REVIEWED MEDS AND APPTS.[facility] CALLED INTO PHARMACY.
--- NOTE | 2019-07-22 14:25 | NUR ---
DC'D TO HOME
--- NOTE | 2019-07-24 09:18 | NUR ---
PATIENT DISCHARGED HOME WITH FAMILY ON 07/22/19 VIA PRIVATE CAR. [facility] WILL PROVIDE THERAPY AT HOME. NO NEW DME NEEDED AT THIS TIME. DR. BERMEO OFFICE TO CALL WITH AN APPOINTMENT. DR. NO 08/07/19 @ 2:15. PATIENT CHOIE FORM WITH COMPARE DATA REVIEWED WITH PATIENT AND DAUGHTER. THEY VOICED UNDERSTANDING. [facility] FORMS SIGNED, COPY GIVEN TO PATIENT AND FILED IN CHART. DSICHARGE INSTRUCTIONS FAXED TO PCP, HOME HEALTH AND REVIEWED WITH PATIENT AND DAUGHTER.
== END 2019-07-22 14:25 | disposition home health service (06) | DRG 548 ==
LOC: D.REHAB 14:29
PROVIDERS: ADMIT Emergency Medicine; ATTEND Emergency Medicine
DX: M00.9 Pyogenic arthritis, unspecified (principal); R53.2 Functional quadriplegia; D62 Acute posthemorrhagic anemia; E44.0 Moderate protein-calorie malnutrition; E87.1 Hypo-osmolality and hyponatremia; R53.1 Weakness; M06.9 Rheumatoid arthritis, unspecified; K21.9 Gastro-esophageal reflux disease without esophagitis; G89.29 Other chronic pain; I95.1 Orthostatic hypotension; F41.9 Anxiety disorder, unspecified; E03.9 Hypothyroidism, unspecified; I10 Essential (primary) hypertension; D72.829 Elevated white blood cell count, unspecified; M25.562 Pain in left knee; E78.5 Hyperlipidemia, unspecified